=== PATIENT | male | born 1950 | race Caucasian/White ===

== ENCOUNTER 2020-04-11 22:23 | Inpatient (IN) | payer OTHER, SELFPAY ==
[~2020-04-11] VITALS: Ht 175.3 cm; Wt 82.1 kg
[2020-04-11 22:49] VITALS: BP 149/78
--- NOTE | 2020-04-11 22:53 | NUR ---
triaged and waiting in ambulance
--- NOTE | 2020-04-12 02:14 | NUR ---
ROXANE ALS TO ER BED 2
--- NOTE | 2020-04-12 03:04 | NUR ---
EKG PERFORMED AT BEDSIDE. EKG READS SINUS TACHYCARDIA @ 104
[2020-04-12 03:05] LABS: BASOPHILS % (AUTO) 0.1 % (0.0-2.0); HEMATOCRIT 43.8 % (36-52); HEMOGLOBIN 14.7 g/dL (12.0-18.0); LYMPHOCYTES # (AUTO) 0.8 K/uL (2.0-11.5); LYMPHOCYTES % (AUTO) 9.3 % (20.5-51.1); MEAN CORPUSCULAR HEMOGLOBIN 29 pg (27-31); MEAN CORPUSCULAR HGB CONC 34 g/dL (33-37); MEAN CORPUSCULAR VOLUME 87.5 fL (80-94); MONOCYTES # (AUTO) 0.5 K/uL (0.8-1.0); MONOCYTES % (AUTO) 5.8 % (1.7-9.3); NEUTROPHILS # (AUTO) 7.3 K/uL (1.8-7.7); NEUTROPHILS % (AUTO) 84.8 % (42.2-75.2); PLATELET COUNT (AUTO) 276 K/uL (140-450); RED CELL DISTRIBUTION WIDTH 14.7 % (11.6-13.7); WHITE BLOOD COUNT (AUTO) 8.6 K/uL (4.8-10.8)
--- NOTE | 2020-04-12 03:14 | NUR ---
ERROL---- JIMMY ROSS,
[2020-04-12 03:26] LABS: PROTHROMBIN TIME 9.8 secs (10.8-13.4)
[2020-04-12 03:27] LABS: ALBUMIN 3.3 g/dL (3.4-5.0); ANION GAP 17.8 (8-16); CARBON DIOXIDE 24.8 mmol/L (21-32); CREATININE 1.1 mg/dL (0.6-1.3); POTASSIUM 3.6 mmol/L (3.5-5.1); TOTAL BILIRUBIN 0.5 mg/dL (0.0-1.0)
[2020-04-12 03:40] LABS: C-REACTIVE PROTEIN QUANT 16.4 mg/dL (0.0-0.9)
[2020-04-12] MEDS ORDERED: AZITHROMYCIN 500 MG in DEXTROSE 5% 250 ML IV ONE (04:00)
[2020-04-12] MEDS ORDERED: DEXAMETHASONE 10 MG/ML VIAL IVP ONE (04:00)
[2020-04-12] MEDS ORDERED: NACL 0.9% 1,000 ML IV ONE (04:00)
[2020-04-12] MEDS ORDERED: cefTRIAXone 1,000 MG VIAL ONE (04:04)
[2020-04-12] MEDS ORDERED: AZITHROMYCIN 500 MG INJ VIAL IV ONE (04:06)
[2020-04-12 04:25] LABS: APPEARANCE,URINE CLEAR (CLEAR); BILIRUBIN,URINE NEGATIVE (NEGATIVE); BLOOD, URINE NEGATIVE (NEGATIVE); COLOR,URINE YELLOW (YELLOW); LEUKOCYTE ESTERASE ,URINE NEGATIVE (NEGATIVE); NITRITE, URINE NEGATIVE (NEGATIVE); PH,URINE 5.5 (5.0-9.0); UGLUCOSE 1+ (NEGATIVE)
--- NOTE | 2020-04-12 04:48 | NUR ---
observed decrease in pt mentation. pt slowly becoming altered. currently a/o x 2. baseline x 4. periods of apnea observed. Dr. Kapoor made aware.
[2020-04-12] MEDS ORDERED: INTUBATION KIT MC ONE (04:49)
--- NOTE | 2020-04-12 04:50 | NUR ---
PT OXYGEN SATURATION DECREASED TO 17% - ERMD , RT & PRIMARY RN AT BEDSIDE FOR INTUBATION.
[2020-04-12 04:51] LABS: RBC,URINE 0-5 /HPF (0-5); WBC,URINE 0-5 /HPF (0-5)
[2020-04-12 04:52] LABS: COARSE GRANULAR CASTS,URINE 0-3 /LPF (None Seen)
[2020-04-12] MEDS ORDERED: ETOMIDATE 20 MG/10 ML VIAL IVP ONE (04:55)
[2020-04-12] MEDS ORDERED: ROCURONIUM 50 MG/5 ML VIAL IV ONE (04:55)
--- NOTE | 2020-04-12 04:55 | NUR ---
ETOMIDATE 20MG IVP
--- NOTE | 2020-04-12 04:55 | NUR ---
ROCURONIUM 50MG IVP ADMINISTERED.
--- NOTE | 2020-04-12 04:58 | NUR ---
INUTBATION COMPLETED, TUBE 7.5 , 23 CM @ LIPS. Addendum: 04/12/20 at 0638 by [facility] 21cm to teeth
[2020-04-12] MEDS ORDERED: PROPOFOL 1000 MG/100 ML PREMIX 100 ML IV ONE ×2 (04:59→05:00)
--- NOTE | 2020-04-12 05:10 | NUR ---
# 16 FR Sherman catheter with 10 ml utilizing sterile technique. Immediate return of 100 ml YELLOW urine noted. Bedside drainage bag placed below level of bladder. Urine sample collected and sent to lab. Pt tolerated procedure WELL.
--- NOTE | 2020-04-12 05:45 | NUR ---
ETT to Vent AC VC PEEP 8 rate 15 FIO2 100
[2020-04-12] MEDS: PROPOFOL 1000 MG/100 ML PREMIX 100 ML IV PRN (06:00)
[2020-04-12 07:00] VITALS: BP 128/40
--- NOTE | 2020-04-12 07:38 | NUR ---
HAND OFF REPORT RECEIVED FROM MEME BLOUNT. ETT TO VENT TUBE 7.5 , 23 CM @ LIPS. BUNCH BAG PLACED IN LOWEST POSITION ON BED FRAME. NO ACUTE DISTRESS NOTED AT THIS TIME. RASS -3. MD BUENO AT BEDSIDE. PT LAYING IN SUPINE POSITION. VSS.
[2020-04-12] MEDS ORDERED: MORPHINE SULFATE 50 MG in NACL 0.9% 45 ML IV PRN (08:30)
--- NOTE | 2020-04-12 09:30 | NUR ---
SPOKE TO PT'S SON JIMMY AT PHONE NUMBER [phone]. AND PAGED DR. COX THAT JIMMY WANTS TO SPEAK TO HIM.
--- NOTE | 2020-04-12 09:50 | NUR ---
DR COX PAGED REGARDING PATIENTS DROP IN BLOOD PRESSURE, LEVOPHED 4MG STAT HOLLY PEREIRA AT THIS TIME
--- NOTE | 2020-04-12 10:00 | NUR ---
DARK RED/BLACK DRAINAGE EXCRETING OUT OF PATIENTS OG TUBE. DR KENNY JEAN BAPTISTE, TORYancy BEGIN SUCTION AT LOW INTERMITTIENT SUCTION. ORDER CARRIED OUT AT THIS TIME. 20Ml DRAINAGE NOTED.
[2020-04-12] MEDS ORDERED: NOREPINEPHRINE 4 MG in DEXTROSE 5% 250 ML IV STA (10:21)
[2020-04-12 11:11] VITALS: BP 128/40
[2020-04-12] MEDS ORDERED: ZOLPIDEM 5 MG TAB PO PRN (12:10)
[2020-04-12] MEDS ORDERED: HYDROcodone/APAP 7.5/325 MG 1 TAB PO PRN (12:10)
[2020-04-12] MEDS ORDERED: POTASSIUM CHLORIDE 10 MEQ TABER PO PRN (12:10)
[2020-04-12] MEDS ORDERED: ACETAMINOPHEN 325 MG TAB PO PRN (12:10)
[2020-04-12] MEDS ORDERED: guaiFENesin DM 200/20 MG-10 ML 10 ML UDC PO PRN (12:10)
[2020-04-12] MEDS ORDERED: ONDANSETRON 4 MG/2 ML VIAL IM/IVP PRN (12:10)
[2020-04-12] MEDS ORDERED: ALBUTEROL HFA MDI 90 MCG/ACTUATION 8 GM INH PRN (12:10)
[2020-04-12] MEDS ORDERED: DOCUSATE SODIUM 100 MG GELCAP PO PRN (12:10)
[2020-04-12] MEDS: NACL 0.9% 1,000 ML IV SCH ×2 (12:21→21:56)
--- NOTE | 2020-04-12 13:56 | NUR ---
PICC NURSE, KAYLA BLOUNT, AT BEDSIDE TO PERFORM PICC LINE PROCEDURE. CONSENTS IN CHART.
[2020-04-12] MEDS ORDERED: remdesivir COMMUNICATION ORDER 1 EA MISC MC PRN (14:35)
[2020-04-12] MEDS ORDERED: remdesivir CLINICAL MONITORING 1 EA MISC MC PRN (14:35)
--- NOTE | 2020-04-12 14:35 | NUR ---
PICC LINE PLACED ON TO RIGHT UPPER ARM
[2020-04-12] MEDS ORDERED: REMDESIVIR (EUA) 200 MG in NACL 0.9% 100 ML IV SCH (16:00)
--- NOTE | 2020-04-12 16:30 | NUR ---
PT LAYING SUPINE, RASS -3, BUNCH BAG TO GRAVITY, BED IN LOWEST POSITION, ETT TO VENT. REPOSITIONED FOR COMFORT. VSS. ALL NEEDS MET AT THIS TIME
[2020-04-12] MEDS ORDERED: NOREPINEPHRINE 4 MG/4 ML VIAL IV ONE ×2 (16:54→22:05)
[2020-04-12 17:25] LABS: HEMATOCRIT 38.5 % (36-52); HEMOGLOBIN 12.7 g/dL (12.0-18.0); MEAN CORPUSCULAR HEMOGLOBIN 29 pg (27-31); MEAN CORPUSCULAR HGB CONC 33 g/dL (33-37); MEAN CORPUSCULAR VOLUME 88.3 fL (80-94); PLATELET COUNT (AUTO) 174 K/uL (140-450); RED BLOOD CELL COUNT(AUTO) 4.36 MIL/uL (4.20-6.10); RED CELL DISTRIBUTION WIDTH 14.5 % (11.6-13.7); WHITE BLOOD COUNT (AUTO) 15.8 K/uL (4.8-10.8)
[2020-04-12 17:47] LABS: PROTHROMBIN TIME 11.1 secs (10.8-13.4)
[2020-04-12 17:48] LABS: EOSINOPHILS % (MANUAL) 1 % (0-4); LYMPHOCYTES % (MANUAL) 3 % (20-46); PROMYELOCYTES % 1 % (0-0)
[2020-04-12 17:54] LABS: ALBUMIN 2.5 g/dL (3.4-5.0); ANION GAP 17.1 (8-16); CARBON DIOXIDE 25.6 mmol/L (21-32); CHOL/HDL RATIO 2.1 (1-4.5); CREATININE 2.7 mg/dL (0.6-1.3); FREE T4 (FREE THYROXINE) 1.05 ng/dL (0.76-1.46); MAGNESIUM 1.5 mg/dL (1.8-2.4); POTASSIUM 3.7 mmol/L (3.5-5.1); THYROID STIMULATING HORMONE 0.53 uIU/mL (0.34-3.74); TOTAL BILIRUBIN 0.8 mg/dL (0.0-1.0)
[2020-04-12] MEDS ORDERED: MORPHINE SULFATE 10 MG/ML VIAL ONE (18:53)
--- NOTE | 2020-04-12 19:28 | NUR ---
REPORT RECEIVED FROM JOSE ALEJANDRO ABDI FOR CONTINUATION OF CARE.
--- NOTE | 2020-04-12 19:31 | NUR ---
PT RECONNECTED TO INTERMITTENT SUCTIONING AT THIS TIME. VSS. NO ACUTE DISTRESS NOTED.
--- NOTE | 2020-04-12 19:37 | NUR ---
SEE IV SPREADSHEET FOR UPDATED VITAL SIGNS. Addendum: 04/13/20 at 1049 by MICKI SEE NOREPINEPHRINE IV SPREADSHEET FOR UPDATED VITAL SIGNS.
[2020-04-12 19:41] VITALS: BP 99/39
--- NOTE | 2020-04-12 21:00 | NUR ---
PT REPOSITIONED TO RT SIDE FOR COMFORT. +CMS , NO INJURY AT BL UE WRIST RESTRAINTS. VSS.
--- NOTE | 2020-04-12 21:20 | NUR ---
IV removed, catheter intact and site benign. Applied folded 4x4 gauze and tape to stop bleeding.
[2020-04-12] MEDS: ENOXAPARIN 80 MG/0.8 ML SYR SUBQ SCH (21:30)
--- NOTE | 2020-04-12 22:20 | NUR ---
NEW 4MG LEVOPHED DRIP HUNG AT THIS TIME.
[2020-04-12 22:33] VITALS: BP 137/37
--- NOTE | 2020-04-12 23:00 | NUR ---
NEW 1000MG BOTTLE OF PROPOFOL HUNG AT THIS TIME.
--- NOTE | 2020-04-12 23:00 | NUR ---
PT REPOSITIONED FOR COMFORT. RAAS -3. BL +CMS . SKIN INTACT. NO ACUTE DISTRESS NOTED.
--- NOTE | 2020-04-12 23:05 | NUR ---
Pt VSS , no acute distres . RAAS -3.
[2020-04-12 23:42] LABS: BARBITURATE, URINE NEGATIVE ng/ml (NEG <=200); BENZODIAZEPINE, URINE NEGATIVE ng/mL (NEG <=200); CANNABINOID, URINE NEGATIVE ng/mL (NEG <=50); COCAINE, URINE NEGATIVE ng/mL (NEG <=300); OPIATE, URINE POSITIVE ng/mL (NEG <=2000); PHENCYCLIDINE SCREEN,URINE NEGATIVE ng/mL (NEG <=25)
--- NOTE | 2020-04-13 00:24 | NUR ---
spoke w/ son regarding pt status. Any status changes will contact son at [phone]
--- NOTE | 2020-04-13 01:00 | NUR ---
PT REPOSITIONED FOR COMFORT TO SUPINE. RASS -3 . +CMS. NO ACUTE DISTRESS NOTED.
--- NOTE | 2020-04-13 02:23 | NUR ---
PT RASS -3. NO ACUTE DISTRES NOTED. VSS . BED LOCKED AND IN LOWEST POSITION, HOB ELEVATED. PT PROVIDED W/ PILLOW BEHIND HEAD FOR COMFORT.
--- NOTE | 2020-04-13 03:00 | NUR ---
PT REPOSITIONED FOR COMFORT TO LEFT SIDE. RASS -3 . +CMS. NO ACUTE DISTRESS NOTED.
--- NOTE | 2020-04-13 03:10 | NUR ---
NEW BOTTLE OF 1000 MG PROPOFOL HUNG AT THIS TIME.
[2020-04-13] MEDS ORDERED: NOREPINEPHRINE 4 MG/4 ML VIAL IV ONE ×3 (03:50→18:43)
--- NOTE | 2020-04-13 04:10 | NUR ---
NEW NOREPINEPHRINE BAG HUNG AT THIS TIME.
[2020-04-13] MEDS ORDERED: cefTRIAXone 1,000 MG VIAL ONE (04:32)
[2020-04-13] MEDS: NACL 0.9% 1,000 ML IV SCH ×3 (04:40→22:12)
--- NOTE | 2020-04-13 05:30 | NUR ---
PT REPOSITIONED FOR COMFORT TO RIGHT SIDED LAYING. RASS -3 . +CMS. NO ACUTE DISTRESS NOTED.
--- NOTE | 2020-04-13 07:00 | NUR ---
NEW PROPOFOL 1000 MG BOTTLE HUNG AT THIS TIME.
--- NOTE | 2020-04-13 07:30 | NUR ---
REPORT PROVIDED TO JOSE ALEJANDRO DUDLEY FOR CONTINUATION OF CARE.
--- NOTE | 2020-04-13 07:31 | NUR ---
Report received from JOSE ALEJANDRO gannon, transfered care at this time.
[2020-04-13 08:07] LABS: BASOPHILS % (AUTO) 0.2 % (0.0-2.0); EOSINOPHILS % (AUTO) 0.1 % (0.0-4.0); HEMATOCRIT 39.2 % (36-52); HEMOGLOBIN 12.9 g/dL (12.0-18.0); LYMPHOCYTES # (AUTO) 1.5 K/uL (2.0-11.5); MEAN CORPUSCULAR HEMOGLOBIN 29 pg (27-31); MEAN CORPUSCULAR HGB CONC 33 g/dL (33-37); MONOCYTES # (AUTO) 0.6 K/uL (0.8-1.0); MONOCYTES % (AUTO) 3.8 % (1.7-9.3); NEUTROPHILS # (AUTO) 14.6 K/uL (1.8-7.7); NEUTROPHILS % (AUTO) 86.9 % (42.2-75.2); PLATELET COUNT (AUTO) 170 K/uL (140-450); RED BLOOD CELL COUNT(AUTO) 4.41 MIL/uL (4.20-6.10); RED CELL DISTRIBUTION WIDTH 14.6 % (11.6-13.7); WHITE BLOOD COUNT (AUTO) 16.8 K/uL (4.8-10.8)
[2020-04-13 08:39] LABS: ALBUMIN 2.3 g/dL (3.4-5.0); ANION GAP 18.1 (8-16); CARBON DIOXIDE 23.2 mmol/L (21-32); POTASSIUM 5.3 mmol/L (3.5-5.1); TOTAL BILIRUBIN 0.7 mg/dL (0.0-1.0)
[2020-04-13 08:57] LABS: CREATININE 5.1 mg/dL (0.6-1.3)
[2020-04-13] MEDS ORDERED: AZITHROMYCIN 250 MG TAB PO SCH (09:00)
[2020-04-13] MEDS ORDERED: PANTOPRAZOLE 40 MG TABEC PO SCH (09:00)
[2020-04-13] MEDS ORDERED: COMMUNICATION ORDER MC SCH (09:00)
[2020-04-13] MEDS ORDERED: ZINC SULF 220 MG CAP PO SCH (09:00)
[2020-04-13] MEDS ORDERED: ASCORBIC ACID 500 MG TAB PO SCH (09:00)
--- NOTE | 2020-04-13 09:04 | NUR ---
Critical lab received Creat 5.1, BUN 38, Ca+ 6.9, reported to Dr. Wright.
[2020-04-13] MEDS: ENOXAPARIN 80 MG/0.8 ML SYR SUBQ SCH (09:24)
--- NOTE | 2020-04-13 10:43 | NUR ---
NEW PROPOFOL 1000 MG BOTTLE HUNG AT THIS TIME.
--- NOTE | 2020-04-13 10:50 | NUR ---
Misty calhoun in [facility] - 04/13/20 at 1138 by [facility] NEW PROPOFOL 1000 MG BOTTLE HUNG AT THIS TIME.
--- NOTE | 2020-04-13 11:26 | NUR ---
Critical troponin 128.926, Dr. Wright and Dr. Rice made aware. Dr. Wright will be placing heparin drip orders.
[2020-04-13] MEDS ORDERED: hePARIN / DEXT 5% PREMIX 250 ML IV SCH (12:15)
[2020-04-13] MEDS ORDERED: HEPARIN PER PHARMACY MC PRN (12:15)
--- NOTE | 2020-04-13 12:32 | NUR ---
Spoke with , pt son for updates.
--- NOTE | 2020-04-13 12:42 | NUR ---
SOCIAL WORK NOTE: Patient's Orientation Unable To Assess Information Provided By JIMMY ROSS - SON Comments SW WAS UNABLE TO MEET PATIENT AT BEDSIDE DUE TO MEDICAL CONDITION. SW COMPLETED ASSESSMENT WITH PATIENT'S SON. Distributor Operator, Realtionship and Phone Number JIMMY ROSS SON [phone] [place] ROSS SON [phone] Healthcare Power of Nuclear Reactor Engineer No Does Patient Have a POLST No Identifying Problems No Social Work Triggers Is A Social Work Consult Needed No Mandate Report Filed No Explanation Of Identifying Problems PATIENT IS A 69-YEAR-OLD VALARIE DMITTED FOR COVID, PNEUMONIA, AND HYPOXIA. PATIENT HAS PMHX OF DIABETES AND HYPERTENSION. Admitted From Home Pre-Admission Level Of Functioning Status Independent/Ambulatory Prior Resources/Services Used In Last 12 Months No Prior Resources Used Prior DME No Prior DME Used Dialysis Comments N/A Living Situation Lives With Family House Patient Had Caregiver No Home Support No Caregiver Issues Financial Issues No Known Financial Issue Referral To The Financial Counselor Needed No Factors/Needs No D/C Needs Identified Pt/Rep Participated In Discharge Plan Yes Patient/Family Agress With Discharge Plan Yes Discharge Plan Comments TENTATIVE DISCHARGE PLAN IS FOR PATIENT TO RETURN HOME. DC Plan Status Initiated
[2020-04-13 13:00] VITALS: BP 119/47
--- NOTE | 2020-04-13 13:43 | NUR ---
NEW PROPOFOL 1000 MG BOTTLE HUNG AT THIS TIME.
[2020-04-13 14:55] VITALS: BP 117/48
[2020-04-13] MEDS: PROPOFOL 1000 MG/100 ML PREMIX 100 ML IV PRN ×3 (16:37→20:40)
--- NOTE | 2020-04-13 16:45 | NUR ---
DISCHARGE PLANNING: THIS IS A 69 Y/O MALE PATIENT FROM HOME, WHO WAS BIBA DUE TO WORSENING SOB. PAST MEDICAL HISTORY INCLUDE DIABETES, HTN. INITIAL DIAGNOSIS OF COVID PNEUMONIA, HYPOXIA. RAPID COVID TEST POSITIVE, PCR PENDING. ORALLY INTUBATED TO VENT, FIO2 100%, PEEP 12, O2 SAT 95%. ON REMDESIVIR, AZITHROMYCIN, ROCEPHIN, DECADRON. SEDATE WITH MORPHINE AND PROPOFOL. CARDIO, ID AND PULMO CONSULTS IN PLACE. DC PLAN PENDING ON PATIENT'S RESPONSE TO TREATMENT.
--- NOTE | 2020-04-13 16:47 | NUR ---
NEW PROPOFOL 1000 MG BOTTLE HUNG AT THIS TIME.
[2020-04-13] MEDS ORDERED: REMDESIVIR (EUA) 100 MG in NACL 0.9% 100 ML IV SCH (17:00)
--- NOTE | 2020-04-13 18:36 | NUR ---
See EMAR and IV spreadsheet for all vitals [id number].
--- NOTE | 2020-04-13 18:55 | NUR ---
NEW PROPOFOL BOTTLE 1000MG HUNG AT THIS TIME.
[2020-04-13 19:24] VITALS: BP 96/37
--- NOTE | 2020-04-13 19:35 | NUR ---
Gave report to JOSE ALEJANDRO Davila, transfered all care at this time.
--- NOTE | 2020-04-13 19:36 | NUR ---
RECEIVED REPORT FROM JOSE ALEJANDRO DUDLEY AND ASSUMED CARE.
--- NOTE | 2020-04-13 22:30 | NUR ---
PT STILL INTUBATED AT THIS TIME. PT RASS -3. NO ACUTE DISTRES NOTED. VSS . BED LOCKED AND IN LOWEST POSITION, HOB ELEVATED.
[2020-04-13 23:03] VITALS: BP 97/70
[2020-04-13 23:12] VITALS: BP 99/38
--- NOTE | 2020-04-13 23:50 | NUR ---
NEW PROPOFOL BOTTLE HUNG.
--- NOTE | 2020-04-14 00:31 | NUR ---
PT REPOSITIONED FOR COMFORT TO LEFT SIDED LAYING. RASS -3 . +CMS. NO ACUTE DISTRESS NOTED. BOTH SIE RAILS UP AND BED IN LOWEST POSITION
--- NOTE | 2020-04-14 02:15 | NUR ---
PT REPOSITIONED FOR COMFORT TO RIGHT SIDED LAYING. RASS -3 . +CMS. NO ACUTE DISTRESS NOTED.
[2020-04-14 03:13] VITALS: BP 83/33
--- NOTE | 2020-04-14 03:32 | NUR ---
CODE BLUE INITIATED
[2020-04-14] MEDS ORDERED: DOPPLER MC ONE (03:34)
[2020-04-14] MEDS ORDERED: EPINEPHrine 1:1000 - 1 MG/ML AMP ONE ×2 (03:55→03:57)
[2020-04-14] MEDS ORDERED: SODIUM BICARBONATE 8.4% PFS 50 MEQ/50 ML SYR IVP ONE (04:03)
--- NOTE | 2020-04-14 04:17 | NUR ---
PT PRONOUNCED BY DR. SMITH AT THIS TIME
--- NOTE | 2020-04-14 04:20 | NUR ---
SEE CODE SHEET FOR CODE INFORMATION
--- NOTE | 2020-04-14 04:29 | NUR ---
INCIDENT COMMANDER CALLED, LEFT MESSAGE. WAS ADV THAT THEY WILL CALL BACK
--- NOTE | 2020-04-14 04:35 | NUR ---
CALLED AND SPOKE TO ADDY FROM [facility]. ADV THAT PT WAS RELEASED TO 4 H YOUTH DEVELOPMENT SPECIALIST. CASE NUMBER IS [id number]
--- NOTE | 2020-04-14 05:20 | NUR ---
CONCRETE MIXING TRUCK DRIVER CALLED BACK AND RELEASED BODY. NO CASE NUMBER NEEDED. MARAL VELAZQUEZ WAS CONCRETE MIXING TRUCK DRIVER.
--- NOTE | 2020-04-14 07:55 | NUR ---
DR SMITH CALLED PT SON AND LEFT MESSAGE
--- NOTE | 2020-04-14 07:58 | NUR ---
DR COX SPOKE WITH FAMILY MEMBER
[2020-04-14 08:07] LABS: T4 (THYROXINE) 5.2 ug/dL (4.5-12.0)
--- NOTE | 2020-04-15 22:58 | NUR ---
CRITICAL LAB VALUE -- COVID +. SENT TO INFECTION CONTROL
== END 2020-04-14 04:17 | DRG 871 ==
LOC: MED 22:23 → MTU 04-12 04:43
PROVIDERS: ADMIT Family Medicine; ATTEND Family Medicine
PROC: 5A1945Z Respiratory Ventilation, 24-96 Consecutive Hours (ICD-10-PCS; principal; 2020-04-12)
PROC: 0BH17EZ Insertion of Endotracheal Airway into Trachea, Via Natural or Artificial Opening (ICD-10-PCS; 2020-04-12)
PROC: XW033E5 Introduction of Remdesivir Anti-infective into Peripheral Vein, Percutaneous Approach, New Technology Group 5 (ICD-10-PCS; 2020-04-12)
DX: A41.9 Sepsis, unspecified organism (principal); U07.1 COVID-19; J12.89 Other viral pneumonia; J96.01 Acute respiratory failure with hypoxia; I21.A1 Myocardial infarction type 2; E44.1 Mild protein-calorie malnutrition; N39.0 Urinary tract infection, site not specified; D68.59 Other primary thrombophilia; N17.9 Acute kidney failure, unspecified; E11.9 Type 2 diabetes mellitus without complications; E86.0 Dehydration; I10 Essential (primary) hypertension; Z68.26 Body mass index [BMI] 26.0-26.9, adult
CPT/HCPCS: 36415; 71045; 80053; 80305; 81001; 82150; 82550; 83036; 83605; 83615; 83690; 83735; 83880; 84100; 84436; 84439; 84443; 84479; 84484; 85025; 85379; 85384; 85610; 85651; 85730; 86140; 86900; 86901; 87040; 87086; 96365; 96367; 96375; 99291; J0171; J0456; J0696; J1650; J2270; J2704; J3490; J7060; U0003